=== PATIENT | female | born 1990 | race American Indian/Alaskan Native ===

== ENCOUNTER 2018-04-26 13:59 | Outpatient (CLI) | payer OTHER | END 2018-04-26 14:15 | disposition home or self-care (01) | LOC: TRG 13:59 | PROVIDERS: ATTEND Obstetrics & Gynecology | DX: O36.0130 Maternal care for anti-D [Rh] antibodies, third trimester, not applicable or unspecified (principal); Z3A.28 28 weeks gestation of pregnancy | CPT/HCPCS: 86850; 86900; 86901; J2790 ==